=== PATIENT | female | born 1995 | race American Indian/Alaskan Native ===

== ENCOUNTER 2018-07-20 22:11 | Emergency (ER) | payer BC, OTHER ==
[2018-07-20 22:12] VITALS: BMI 26.8
--- NOTE | 2018-07-20 22:30 | C.PDOC ---
History Of Present Illness Patient presents to the ER with abdominal discomfort since this morning. She states pain is worse with bowel movement. LMP 07/05/18, not sure if . Denies urinary symptoms, nausea or vomiting. Time Seen by Provider: 07/20/18 22:29 Chief Complaint (Nursing): Abdominal Pain History Per: Patient History/Exam Limitations: no limitations Onset/Duration Of Symptoms: Hrs Current Symptoms Are (Timing): Still Present Severity: Moderate Pain Scale Rating Of: 4 Location Of Pain/Discomfort: Epigastric Radiation Of Pain To:: None Quality Of Discomfort: Unable To Describe Associated Symptoms: denies: Nausea, Vomiting, Urinary Symptoms Exacerbating Factors: Other (Bowel movement) Alleviating Factors: None Recent travel outside of the [place]: No Past Medical History Reviewed: Historical Data, Nursing Documentation, Vital Signs Vital Signs: Last Vital Signs Temp 98.7 F 07/20/18 22:15 Pulse 101 H 07/20/18 22:15 Resp 20 07/20/18 22:15 BP 116/77 07/20/18 22:15 Pulse Ox 99 07/20/18 22:15 - Medical History PMH: Denies: Chronic Kidney Disease Family History: States: No Known Family Hx - Social History Hx Alcohol Use: No Hx Substance Use: No - Immunization History Hx Tetanus Toxoid Vaccination: No Hx Influenza Vaccination: No Hx Pneumococcal Vaccination: No Review Of Systems Constitutional: Negative for: Fever, Chills Cardiovascular: Negative for: Chest Pain, Palpitations Respiratory: Negative for: Cough, Shortness of Breath Gastrointestinal: Positive for: Abdominal Pain. Negative for: Nausea, Vomiting Genitourinary: Negative for: Dysuria, Hematuria Neurological: Negative for: Weakness, Numbness Physical Exam - Physical Exam Appears: Non-toxic Skin: Warm, Dry Head: Normacephalic Oral Mucosa: Moist Chest: Symmetrical, No Tenderness Cardiovascular: Rhythm Regular Respiratory: No Rales, No Rhonchi, No Wheezing Gastrointestinal/Abdominal: Soft, Tenderness (Mild mid epigastric), No Guarding, No Rebound Back: No CVA Tenderness Neurological/Psych: Oriented x3 ED Course And Treatment - Laboratory Results Result Diagrams: 07/20/18 23:17 07/20/18 23:17 O2 Sat by Pulse Oximetry: 99 (Room air) Pulse Ox Interpretation: Normal Progress Note: Blood work and urinalysis ordered. IV fluids administered. Reevaluation Time: 02:34 Reassessment Condition: Improved Medical Decision Making Medical Decision Making: Upon provider reevaluation patient is feeling better, is medically stable, and requires no further treatment in the ED at this time. Patient will be discharged home with Rx for macrobid . Counseling was provided and all questions were answered regarding diagnosis and need for follow up with the referred clinic. There is agreement to discharge plan. Return if symptoms persist or worsen. Disposition Counseled Patient/Family Regarding: Studies Performed, Diagnosis, Need For Followup, Rx Given - Disposition Referrals: Sharan Gutierrez, FAVIO, GROUP COUNSELOR [Advanced Practice Nurse] - Disposition: HOME/ ROUTINE Disposition Time: 22:30 Condition: FAIR Additional Instructions: Please return if symptoms recur Prescriptions: Naproxen [Naprosyn] 1 tab PO BID PRN #25 tab PRN Reason: Pain Nitrofurantoin Macrocrystals [Macrobid] 100 mg PO BID #14 cap Instructions: Acute Abdomen (Belly Pain), Adult (DC), Urinary Tract Infection, Adult (DC) Forms: [employer] (Indonesian) - Clinical Impression Clinical Impression: Abdominal pain, UTI (urinary tract infection) - Scribe Statement The provider has reviewed the documentation as recorded by the Scribe Bharathi Leo All medical record entries made by the Scribe were at my direction and personally dictated by me. I have reviewed the chart and agree that the record accurately reflects my personal performance of the history, physical exam, medical decision making, and the department course for this patient. I have also personally directed, reviewed, and agree with the discharge instructions and d isposition.
[2018-07-20] MEDS ORDERED: Sodium Chloride 0.9% 1,000 ML IV ONE (23:08)
[2018-07-20 23:20] LABS: BASO % 0.4 % (0.0-2.0); EOS # 0.2 K/uL (0.0-0.7); EOS % 1.7 % (0.0-4.0); LYMPH # 1.8 K/uL (1.0-4.3); LYMPH % 16.6 % (20.0-40.0); MEAN CELL VOLUME 87.1 fL (81.0-99.0); MEAN CORPUSCULAR HEMOGLOBIN 28.8 pg (27.0-31.0); MEAN CORPUSCULAR HGB CONC 33.1 g/dL (33.0-37.0); MEAN PLATELET VOLUME 9.9 fL (7.2-11.7); MONO # 0.7 K/uL (0.0-0.8); MONO % 6.6 % (0.0-10.0); NEUT # 8.1 K/uL (1.8-7.0); NEUT % 74.7 % (50.0-75.0); RBC 4.15 Mil/uL (3.80-5.20); RED CELL DISTRIBUTION WIDTH 13.8 % (11.5-14.5); WHITE BLOOD COUNT 10.8 K/uL (4.8-10.8)
[2018-07-20 23:28] LABS: INR 1.1; PROTHROMBIN TIME 12.3 SECONDS (9.7-12.2)
[2018-07-20 23:32] LABS: ALB/GLOB RATIO 1.4 (1.0-2.1); ALBUMIN 4.3 g/dL (3.5-5.0); ALT/SGPT 13 U/L (9-52); AST/SGOT 20 U/L (14-36); BLOOD UREA NITROGEN 16 mg/dL (7-17); GFR NON-AFRICAN AMERICAN > 60; LIPASE 42 U/L (23-300)
[2018-07-21 00:25] LABS: SQUAMOUS EPITHIAL 7 /hpf (0-5); URINE BILIRUBIN NEGATIVE (NEGATIVE); URINE BLOOD NEGATIVE (NEGATIVE); URINE CLARITY Hazy (Clear); URINE COLOR Yellow (YELLOW); URINE GLUCOSE (UA) NORMAL (Normal); URINE LEUKOCYTE ESTERASE 3+ Leu/uL (Negative); URINE PROTEIN NEGATIVE (NEGATIVE); URINE UROBILINOGEN NORMAL mg/dL (0.2-1.0)
[2018-07-21 00:27] LABS: HCG,QUALITATIVE URINE NEGATIVE (NEGATIVE)
[2018-07-21 00:28] LABS: URINE BACTERIA FEW (<OCC)
[2018-07-21] MEDS ORDERED: Iodixanol 320 MG/ML 100 ML BOTTLE IV ONE (01:51)
[2018-07-21 02:59] VITALS: BP 120/74; PULSE 91; RESP 16; TEMP 99.1; O2SAT 100
--- NOTE | 2018-07-21 09:04 | CT ---
CT ABDOMEN AND PELVIS HISTORY: ABDOMINAL PAIN. COMPARISON: NONE AVAILABLE. TECHNIQUE: MULTIPLE CONTIGUOUS AXIAL IMAGES WERE PERFORMED THROUGH THE ABDOMEN AND PELVIS WITH THE USE OF INTRAVENOUS CONTRAST. SUBSEQUENTLY, SAGITTAL AND CORONAL REFORMATTED IMAGES WERE OBTAINED. This CT exam was performed using one or more of the following dose reduction techniques: Automated exposure control, adjustment of the mA and/or kV according to patient size, and/or use of iterative reconstruction technique. FINDINGS: Lung bases are clear. No pleural or pericardial effusion. Liver and gallbladder are preserved. Spleen is preserved. Adrenal glands are preserved. Pancreas is preserved. Fluid-filled loops of distended small bowel seen within the mid to distal small bowel suggestive for an enteritis. Clinical correlation. Right kidney: Mild fullness of the right renal collecting system. No gross calculi or hydronephrosis. Left Kidney: No gross hydronephrosis. Evaluation for calculi somewhat limited given the postcontrast status. Punctate hypodensity in the upper pole measuring 3 millimeters too small to adequately characterize. Urinary bladder is preserved. Heterogeneous prominent uterus and bilateral adnexa. Bilateral changes of pelvic congestion syndrome. Underdistention and or mild thickening of the sigmoid colon and rectum. Few scattered colonic diverticuli. Fecal retention in the colon. Appendix is visualized and is within normal limits. Few shotty para-aortic and inguinal lymph nodes. Few shotty mesenteric lymph nodes. Osseous structures are preserved. Impression: 1. Fluid-filled and distended small bowel loops which may represent a mild ileus enteritis. Clinical correlation. 2. Underdistention and or mild thickening of the sigmoid colon and rectum. Few scattered diverticuli. Clinical correlation. Additional findings as above. A preliminary report was generated at 2:17 a.m. on 07/21/[address] Garett Gamez from [employer]. This case was placed in PA review folder.
== END 2018-07-21 03:12 | disposition home or self-care (01) ==
LOC: C.ER 22:11
DX: N39.0 Urinary tract infection, site not specified (principal); R10.13 Epigastric pain
CPT/HCPCS: 74177; 80053; 81001; 83690; 84702; 84703; 85025; 85610; 85730; 96361; 96374; 99285; J1885; J7030; Q9967

== ENCOUNTER 2018-10-16 20:44 | Emergency (ER) | payer BC, OTHER ==
[2018-10-16 20:45] VITALS: BMI 26.5
[2018-10-16 21:09] VITALS: BP 136/94; PULSE 88; RESP 18; TEMP 99.1; O2SAT 100
--- NOTE | 2018-10-16 21:19 | C.PDOC ---
History Of Present Illness Patient is a 23 year old female who presents to the ED for evaluation of left shoulder pain that began today. Patient reports that she has a hx of left shoulder dislocation in the past and believes she dislocated her shoulder today, but was able to pop it back into joint. Patient reports she is currently experiencing 8/10 pain, but has not taken any medications. She denies any numbness, weakness, tingling, or other injuries. Time Seen by Provider: 10/16/18 21:12 Chief Complaint (Nursing): Upper Extremity Problem/Injury History Per: Patient History/Exam Limitations: no limitations Onset/Duration Of Symptoms: Hrs Current Symptoms Are (Timing): Still Present Quality: "Pain" Pain Scale Rating Of: 8 Recent travel outside of the [place]: No Additional History Per: Patient Past Medical History Reviewed: Historical Data, Nursing Documentation, Vital Signs Vital Signs: Last Vital Signs Temp 99.1 F 10/16/18 21:03 Pulse 88 10/16/18 21:03 Resp 18 10/16/18 21:03 BP 136/94 H 10/16/18 21:03 Pulse Ox 100 10/16/18 21:03 Primary Care Provider: FAMILY PROVIDER,NO - Medical History PMH: HTN (NO MEDS) Denies: Chronic Kidney Disease Surgical History: No Surg Hx Family History: States: Unknown Family Hx - Social History Hx Alcohol Use: No Hx Substance Use: No - Immunization History Hx Tetanus Toxoid Vaccination: No Hx Influenza Vaccination: No Hx Pneumococcal Vaccination: No Review Of Systems Constitutional: Negative for: Weakness Gastrointestinal: Negative for: Nausea, Vomiting Musculoskeletal: Positive for: Shoulder Pain (left ). Negative for: Neck Pain, Back Pain Skin: Negative for: Bruising Neurological: Negative for: Numbness, Headache, Other (tingling) Physical Exam - Physical Exam Appears: Non-toxic, No Acute Distress Skin: Warm, Dry Head: Atraumatic, Normacephalic Eye(s): bilateral: Normal Inspection Neck: Normal ROM, Supple Chest: Symmetrical Cardiovascular: Rhythm Regular, No Murmur Respiratory: Normal Breath Sounds, No Wheezing Gastrointestinal/Abdominal: Soft, No Tenderness Extremity: Tenderness, Capillary Refill (less than 2 seconds), No Deformity (left shoulder), Other (No edema, ecchymosis, or erythema of left shoulder) Extremity: Left: Limited ROM To Joint (shoulder due to pain), Bilateral: Normal Color And Temperature, Normal ROM Pulses: Left Brachial: Normal, Right Brachial: Normal, Left Radial: Normal, Right Radial: Normal Neurological/Psych: Oriented x3, Normal Speech, Normal Cognition, Normal Sensation Gait: Steady ED Course And Treatment O2 Sat by Pulse Oximetry: 100 (on RA) Pulse Ox Interpretation: Normal Medical Decision Making Medical Decision Making: Plan: Toradol 60mg IM given for pain Lidoderm placed on Left Shoulder Arm sling given patient advised to follow up in Ortho clinic tomorrow - may need MRI motrin as needed for pain as outpatient patient stable for discharged Disposition Counseled Patient/Family Regarding: Diagnosis, Need For Followup, Rx Given - Disposition Referrals: Orthopedic Clinic at [Outside] Disposition: HOME/ ROUTINE Disposition Time: 21:56 Condition: IMPROVED Additional Instructions: Follow up in Ortho clinic tomorrow Motrin as needed for pain lidoderm patch for pain Rest, Ice, Compression, and Elevation Return to ED if symptoms worsen Prescriptions: Ibuprofen [Motrin] 600 mg PO Q8 PRN #30 tab PRN Reason: Pain, Moderate (4-7) Lidocaine 5% [Lidoderm] 1 ea TD DAILY PRN #30 patch PRN Reason: Pain, Moderate (4-7) Instructions: Shoulder Dislocation (DC) Forms: [employer] (American), Work Excuse - Clinical Impression Clinical Impression: Left shoulder pain - PA / [employer] / Resident Statement MD/DO has reviewed & agrees with the documentation as recorded. - Scribe Statement The provider has reviewed the documentation as recorded by the Javier Porras All medical record entries made by the Goodibe were at my direction and personally dictated by me. I have reviewed the chart and agree that the record accurately reflects my personal performance of the history, physical exam, medical decision making, and the department course for this patient. I have also personally directed, reviewed, and agree with the discharge instructions and disposition.
[2018-10-16] MEDS ORDERED: Lidocaine 5% Patch TD STA (21:22)
[2018-10-16] MEDS ORDERED: Lidocaine 5% Patch TD ONE (21:32)
== END 2018-10-16 22:00 | disposition home or self-care (01) ==
LOC: C.ER 20:44
DX: M25.512 Pain in left shoulder (principal)
CPT/HCPCS: 96372; 99285; J1885